=== PATIENT | female | born 1975 | race Caucasian/White ===

== ENCOUNTER → 2016-07-24 | Outpatient (CLI) | payer BC ==
[2004-12-16 07:43] VITALS: TEMP 97.8
[~2016-07-24] MED LIST: CEFZIL500 MG PO; CELEXA; CELEXA 20MG20 MG/TAB PO; MAXZIDE-25MG TA1 TAB PO; MOTRIN 600600 MG/TAB PO; PERCOCET 325 MG1 TA2 PO; PRENATAL1 TA1 PO; TUMS 500500 MG PO; VICODIN 5/5001 UDTAB PO; ZOLOFT 50MG50 MG PO
== END ==
LOC: MC.RAD 10:47
DX: Z12.31 Encounter for screening mammogram for malignant neoplasm of breast (principal)

== ENCOUNTER → 2017-08-16 | Outpatient (CLI) | payer BC ==
[2004-12-16 07:43] VITALS: TEMP 97.8
== END ==
LOC: MC.RAD 11:40
DX: Z12.31 Encounter for screening mammogram for malignant neoplasm of breast (principal)

== ENCOUNTER → 2018-08-15 | Outpatient (CLI) | payer BC ==
[2004-12-16 07:43] VITALS: TEMP 97.8
== END ==
LOC: MC.RAD 10:15
DX: Z12.31 Encounter for screening mammogram for malignant neoplasm of breast (principal)